=== PATIENT | male | born 1985 | race African-American/Black ===

== ENCOUNTER 2017-03-23 06:12 | Emergency (ER) | payer MEDICAID ==
[~2017-03-23] VITALS: Ht 172.7 cm; Wt 68.0 kg
[2017-03-23] MEDS ORDERED: ACETAMINOPHEN WITH CODEINE 300/30MG TABLET PO ONE (06:45)
[2017-03-23] MEDS ORDERED: SODIUM CHLORIDE 0.9% 1,000 ML IV ONE (08:16)
[2017-03-23] MEDS ORDERED: TETANUS, DIPHTHERIA, PERTUSSIS VAC/PF 0.5ML (>7YR OLD) IM ONE (08:30)
[2017-03-23] MEDS ORDERED: BACITRACIN ZINC OINT UDPKT TOP ONE (08:30)
[2017-03-23] MEDS ORDERED: LIDOCAINE HCL 1% 20ML VIAL (Pyxis) INJ MC ONE (08:30)
[2017-03-23] MEDS ORDERED: CLINDAMYCIN 600 MG in DEXTROSE 5% WATER 50 ML IV ONE (08:30)
[2017-03-23 09:30] VITALS: BP 120/70
== END 2017-03-23 11:09 | disposition home or self-care (01) ==
LOC: ER 06:13
DX: L02.413 Cutaneous abscess of right upper limb (principal); J40 Bronchitis, not specified as acute or chronic; F12.10 Cannabis abuse, uncomplicated; Z87.891 Personal history of nicotine dependence
CPT/HCPCS: 73070; 90471; 90715; 96361; 96365; 96366; 99285; J3490; X7700; Z7610; J7030; J7060

== ENCOUNTER 2017-04-28 15:49 | Emergency (ER) | payer MEDICAID ==
[~2017-04-28] VITALS: Ht 172.7 cm; Wt 72.0 kg
[2017-04-28 15:51] VITALS: BP 121/58
== END 2017-04-28 16:35 | disposition home or self-care (01) ==
LOC: ER 16:12
DX: S50.362A Insect bite (nonvenomous) of left elbow, initial encounter (principal); F17.200 Nicotine dependence, unspecified, uncomplicated; F12.10 Cannabis abuse, uncomplicated; W57.XXXA Bitten or stung by nonvenomous insect and other nonvenomous arthropods, initial encounter; Y93.89 Activity, other specified; Y92.89 Other specified places as the place of occurrence of the external cause; Y99.8 Other external cause status
CPT/HCPCS: 99282

== ENCOUNTER 2018-04-03 08:42 | Emergency (ER) | payer MEDICAID ==
[~2018-04-03] VITALS: Ht 162.6 cm; Wt 76.0 kg
[2018-04-03] MEDS ORDERED: LIDOCAINE HCL/PF 1% 2ML VIAL INFIL ONE (09:30)
[2018-04-03] MEDS ORDERED: LIDOCAINE HCL/PF 1% 10 MG/ML 5ML VIAL IJ ONE (09:38)
[2018-04-03] MEDS ORDERED: IBUPROFEN 600MG TABLET PO ONE (09:45)
[2018-04-03 11:07] VITALS: BP 121/71
== END 2018-04-03 11:14 | disposition home or self-care (01) ==
LOC: ER 09:16
DX: L02.31 Cutaneous abscess of buttock (principal); Z87.891 Personal history of nicotine dependence; F12.90 Cannabis use, unspecified, uncomplicated
CPT/HCPCS: 10060; 99283; J3490; Z7610

== ENCOUNTER 2018-11-15 14:31 | Emergency (ER) | payer MEDICAID ==
[~2018-11-15] VITALS: Ht 172.7 cm; Wt 68.0 kg
[2018-11-15 14:55] VITALS: BP 144/76
== END 2018-11-15 18:00 | disposition left against medical advice (07) ==
LOC: ER 14:31
DX: Z53.21 Procedure and treatment not carried out due to patient leaving prior to being seen by health care provider (principal)